=== PATIENT | female | born 1965 ===

== ENCOUNTER 2021-12-10 05:50 | Observation (INO) ==
[2021-12-07 12:17] LABS: Basophils % 0.5 % (0.0-0.8); Eosinophils # 0.4 10*3/uL (0.0-0.87); Eosinophils % 6.3 % (0.00-10.9); Hematocrit 34.9 VOL% (35.7-47.0); Hemoglobin 12.2 GM/DL (12.0-16.0); Immature Granulocytes % 0.3 %; Immature Granulocytes Absolute 0.02 #; Lymphocytes # 0.7 10*3/uL (1.4-4.0); Lymphocytes % 11.9 % (21.3-54.2); Mean Platelet Volume 10.2 FL (9.6-12.0); Monocytes # 0.7 10*3/uL (0.11-0.8); Monocytes % 11.3 % (1.7-12.7); Neutrophils % 69.7 % (38.7-73.9); Platelet Count 157 T/CUMM (130-400); Red Blood Count 3.42 MC/CUMM (3.8-5.5); Red Cell Distribution Width 15.8 % (9.3-17.3); White Blood Count 6.2 T/CUMM (4-12)
[2021-12-07 12:35] LABS: Calcium 8.7 MG/DL (8.5-10.1); Osmolality,Calculated 279.8 MOS/KG (273-304); Potassium 4.3 MMOL/L (3.5-5.1)
[~2021-12-10 05:50] MED LIST: VANCOMYCIN INJ 1,000 MG in SODIUM CHLORIDE 0.9% 250 ML IV ONE
[2021-12-10] MEDS ORDERED: LACTATED RINGERS 1,000 ML IV SCH (06:00)
[2021-12-10] MEDS ORDERED: DIAZEPAM 5 MG TABLET PO ONE (06:55)
[2021-12-10] MEDS ORDERED: FAMOTIDINE 20 MG TABLET PO ONE (06:55)
[2021-12-10] MEDS ORDERED: TISSUE ADHESIVE 1 EACH APPLICATOR TOP ONE (09:35)
[2021-12-10] MEDS ORDERED: BUPIVACAINE MPF 0.25% 10 ML VIAL ONE (09:35)
[2021-12-10] MEDS ORDERED: LIDOCAINE 1%/EPI INJ 20 ML VIAL ONE (09:35)
[2021-12-10] MEDS ORDERED: fentaNYL 100 MCG/2 ML VIAL ONE ×2 (09:58→11:24)
[2021-12-10] MEDS ORDERED: MIDAZOLAM 2 MG/2 ML VIAL ONE (09:59)
[2021-12-10] MEDS ORDERED: SEVOFLURANE 1 UNIT/15 MINUTE INH ONE (10:35)
[2021-12-10] MEDS ORDERED: SUCCINYLCHOLINE 200 MG/10 ML VIAL ONE (10:35)
[2021-12-10] MEDS ORDERED: LIDOCAINE 2% 5 ML VIAL ONE (10:35)
[2021-12-10] MEDS ORDERED: ONDANSETRON 4 MG/2 ML VIAL ONE (10:35)
[2021-12-10] MEDS ORDERED: ROCURONIUM 50 MG/5 ML VIAL IV ONE (10:35)
[2021-12-10] MEDS ORDERED: propofoL 200 MG/20 ML VIAL IV ONE (10:35)
[2021-12-10] MEDS ORDERED: NEOSTIGMINE 10 MG/10 ML VIAL ONE (11:03)
[2021-12-10] MEDS ORDERED: GLYCOPYRROLATE 0.4 MG/2 ML VIAL ONE (11:04)
[2021-12-10] MEDS ORDERED: ONDANSETRON 4 MG/2 ML VIAL IV PRN ×2 (11:34→11:52)
[2021-12-10] MEDS ORDERED: MORPHINE 2 MG/1 ML SYRINGE IV PRN (11:34)
[2021-12-10] MEDS: HYDROmorphone 1 MG/1 ML SYRINGE IV PRN ×4 (11:52→12:59)
[2021-12-10 12:04] LABS: Basophils % 0.6 % (0.0-0.8); Eosinophils # 0.3 10*3/uL (0.0-0.87); Eosinophils % 6.7 % (0.00-10.9); Hematocrit 31.9 VOL% (35.7-47.0); Hemoglobin 11.2 GM/DL (12.0-16.0); Immature Granulocytes % 0.4 %; Immature Granulocytes Absolute 0.02 #; Lymphocytes # 1.7 10*3/uL (1.4-4.0); Lymphocytes % 32.7 % (21.3-54.2); Mean Corpuscular HGB Conc 35.1 GM/DL (32-36); Mean Corpuscular Volume 101.9 FL (87-102); Mean Platelet Volume 9.1 FL (9.6-12.0); Monocytes # 0.6 10*3/uL (0.11-0.8); Monocytes % 11.2 % (1.7-12.7); Neutrophils % 48.4 % (38.7-73.9); Platelet Count 176 T/CUMM (130-400); Red Blood Count 3.13 MC/CUMM (3.8-5.5); Red Cell Distribution Width 15.8 % (9.3-17.3); White Blood Count 5.1 T/CUMM (4-12)
[2021-12-10 12:36] LABS: Albumin 2.6 G/DL (3.4-5.0); Bilirubin,Total 0.5 MG/DL (0.20-1.00); Osmolality,Calculated 280.7 MOS/KG (273-304); Potassium 4.3 MMOL/L (3.5-5.1); Total Protein 9.2 G/DL (6.4-8.2)
[2021-12-10 20:02] LABS: Hematocrit 33.7 VOL% (35.7-47.0); Hemoglobin 11.4 GM/DL (12.0-16.0)
[2021-12-11 05:38] LABS: Hematocrit 31.7 VOL% (35.7-47.0); Hemoglobin 10.9 GM/DL (12.0-16.0)
[2021-12-11] MEDS: PANTOPRAZOLE 40 MG TABLET PO SCH (09:44)
[2021-12-11 10:55] LABS: Hematocrit 30.7 VOL% (35.7-47.0); Hemoglobin 10.8 GM/DL (12.0-16.0)
[2021-12-12 05:36] LABS: Hematocrit 28.7 VOL% (35.7-47.0)
[2021-12-12] MEDS: PANTOPRAZOLE 40 MG TABLET PO SCH (08:33)
[2021-12-12] MEDS: BISACODYL 5 MG TABLET PO PRN ×2 (16:54→22:41)
[2021-12-13 05:26] LABS: Basophils % 0.4 % (0.0-0.8); Eosinophils # 0.3 10*3/uL (0.0-0.87); Eosinophils % 5.5 % (0.00-10.9); Hematocrit 28.6 VOL% (35.7-47.0); Hemoglobin 9.9 GM/DL (12.0-16.0); Immature Granulocytes % 0.8 %; Immature Granulocytes Absolute 0.04 #; Lymphocytes # 0.8 10*3/uL (1.4-4.0); Lymphocytes % 15.5 % (21.3-54.2); Mean Corpuscular HGB Conc 34.6 GM/DL (32-36); Mean Corpuscular Volume 103.2 FL (87-102); Mean Platelet Volume 9.9 FL (9.6-12.0); Monocytes # 0.5 10*3/uL (0.11-0.8); Monocytes % 10.2 % (1.7-12.7); Neutrophils % 67.6 % (38.7-73.9); Platelet Count 190 T/CUMM (130-400); Red Blood Count 2.77 MC/CUMM (3.8-5.5); Red Cell Distribution Width 15.4 % (9.3-17.3); White Blood Count 5.3 T/CUMM (4-12)
[2021-12-13 08:07] VITALS: BP 119/76
[2021-12-13] MEDS: PANTOPRAZOLE 40 MG TABLET PO SCH (08:59)
== END 2021-12-13 11:35 | disposition home or self-care (01) ==
LOC: N.OR 05:50 → N.3E 05:50 → N.SDSINP 05:51 → N.3E 13:28
PROVIDERS: ADMIT Surgery; ATTEND Surgery
PROC: LAPCHOL (2021-12-10 10:00)